=== PATIENT | male | born 1955 | race Two or more races ===

== ENCOUNTER 2017-03-14 17:53 | Emergency (ER) | payer OTHER ==
[2017-03-14 18:07] VITALS: BP 188/93; PULSE 96; RESP 16; TEMP 98.8; O2SAT 97
--- NOTE | 2017-03-14 18:21 | EDPHY ---
H & P Time Seen by Provider: 03/14/17 17:57 HPI/ROS: HPI Runny nose, spit up blood. 61-year-old male by private vehicle with his daughter and . He is . [place]-speaking only. His daughter speaks [place] well and translated. Patient reports that he has had a runny nose which she states is consistent of a clear rhinorrhea for the last 24-48 hours. He reports that he felt discharge in the back of his throat and nose, cleared at, suspected out in it had blood mixed with a clear saliva like liquid. He denies any significant sore throat. He has not had a cough. He is not on any anticoagulation. Past medical history consists of hypertension. ROS: Constitutional: No fever, no chills. No weakness. Eyes: No discharge. No changes in vision. ENT: No sore throat. Other above. Respiratory: No cough. No shortness of breath. Cardiac: No chest pain, no palpitations. Gastrointestinal: No abdominal pain, no vomiting, no diarrhea. Genitourinary: No hematuria. No dysuria or increased frequency with urination. Musculoskeletal: No back pain. No neck pain. No myalgias or arthralgias. Skin: No rashes. Neurological: No headache. No focal weakness or altered sensation. Past medical history: Hypertension. Primary care is through [facility]. Social history: Nonsmoker. Drinks several beers a night. Here with his and daughter. Physical Exam: General Appearance: Alert, no distress. This patient is responding to questions appropriately and in full sentences. This patient appears well- hydrated and well-nourished. Eyes: Pupils equal and round no pallor or injection. No lid edema, erythema or injection. ENT, Mouth: Mucous membranes are moist. The pharyngeal tissues are unremarkable. No edema or swelling. No asymmetry suggestive of abscess. No erythema or exudates. No blood in the posterior pharynx. Nasal cavity exam by speculum. There is some inflammation involving his turbinates. No evidence of mass. No evidence of active hemorrhage. External auditory canals are clear bilaterally. Tympanic membranes are clear bilaterally. Respiratory: There are no retractions, lungs are clear to auscultation with good air movement bilaterally. Cardiovascular: Regular rate and rhythm. No murmur. Neurological: Motor sensory function is grossly intact. Cranial nerves are normal. Gait is normal. Skin: Warm and dry, no rashes. Musculoskeletal: Neck is supple and nontender. No significant cervical , submandibular, submental lymphadenopathy. Extremities are symmetrical. All joints range without pain or impingement. Psychiatric: No agitation. No depression. Database: EKG: Imaging: Chest x-ray PA and lateral; the cardiac mediastinal silhouette is unremarkable. No evidence of infiltrate or pneumothorax. No acute cardiopulmonary disease process noted. Interpreted by me. Procedures: Emergency department course: Vital signs reviewed. Patient is hypertensive. Afebrile. Temperature 37.1degrees orally. 6:35 p.m., results of chest x-ray and blood work discussed with him and family. These results were reassuring. At this time I feel that he has some localized inflammation from a viral upper respiratory infection/sinusitis that is causing some bleeding in his posterior pharynx and or the mucosa of his nasal cavities. He appears well. I do not feel at this time antibiotics are indicated. I will have him follow up with his primary care physician on Thursday for re-evaluation. I also provided him with an ENT referral for further evaluation. Return to emergency department precautions were discussed with him and his family in detail. All of their questions were answered. He was discharged in good condition. Differential Diagnosis: The differential diagnosis on this patient includes but is not limited to upper respiratory infection, viral sinusitis. Leukemia, coagulopathy, uremia, anterior versus posterior epistaxis, nasal trauma, serious bacterial infection unlikely. This represents a partial list of diagnoses considered. These considerations are based on history, physical exam, past history, reassessment and diagnostic testing. Smoking Status: Never smoked Constitutional: Initial Vital Signs Temperature (C) 37.1 C 03/14/17 18:02 Heart Rate 96 03/14/17 18:02 Respiratory Rate 16 03/14/17 18:02 Blood Pressure 188/93 H 03/14/17 18:02 O2 Sat (%) 97 03/14/17 18:02 O2 Delivery Mode Room Air Allergies/Adverse Reactions: No Known Allergies Allergy (Unverified 03/14/17 18:01) Home Medications: Medication Instructions Recorded Blood Pressure Med 03/14/17 Medical Decision Making - Diagnostics Imaging Results: Imaging Impressions Chest X-Ray 03/14/17 18:12 Impression: No acute findings in the chest. - Data Points Laboratory Results: Laboratory Results 03/14/17 18:20 03/14/17 18:20 03/14/17 03/14/17 18:20 18:20 WBC 7.61 10^3/uL 10^3/uL (3.80-9.50) RBC 5.31 10^6/uL 10^6/uL (4.40-6.38) Hgb 16.9 g/dL g/dL (13.7-17.5) Hct 48.7 % % (40.0-51.0) MCV 91.7 fL fL (81.5-99.8) MCH 31.8 pg pg (27.9-34.1) MCHC 34.7 g/dL g/dL (32.4-36.7) RDW 12.3 % % (11.5-15.2) Plt Count 181 10^3/uL 10^3/uL (150-400) MPV 10.8 fL fL (8.7-11.7) Neut % (Auto) 68.4 % % (39.3-74.2) Lymph % (Auto) 23.8 % % (15.0-45.0) [place] % (Auto) 5.9 % % (4.5-13.0) Eos % (Auto) 1.1 % % (0.6-7.6) Baso % (Auto) 0.3 % % (0.3-1.7) Nucleat RBC Rel Count 0.0 % % (0.0-0.2) Absolute Neuts (auto) 5.21 10^3/uL 10^3/uL (1.70-6.50) Absolute Lymphs (auto) 1.81 10^3/uL 10^3/uL (1.00-3.00) Absolute Monos (auto) 0.45 10^3/uL 10^3/uL (0.30-0.80) Absolute Eos (auto) 0.08 10^3/uL 10^3/uL (0.03-0.40) Absolute Basos (auto) 0.02 10^3/uL 10^3/uL (0.02-0.10) Absolute Nucleated RBC 0.00 10^3/uL 10^3/uL (0-0.01) Immature Gran % 0.5 % % (0.0-1.1) Immature Gran # 0.04 10^3/uL 10^3/uL (0.00-0.10) Sodium 141 mEq/L mEq/L (134-144) Potassium 3.9 mEq/L mEq/L (3.5-5.2) Chloride 104 mEq/L mEq/L (97-110) Carbon Dioxide 22 mEq/l mEq/l (22-31) Anion Gap 15 mEq/L mEq/L (8-16) BUN 16 mg/dL mg/dL (7-23) Creatinine 0.9 mg/dL mg/dL (0.7-1.3) Estimated GFR > 60 Glucose 111 mg/dL H mg/dL (70-100) Calcium 9.1 mg/dL mg/dL (8.5-10.4) Departure - Departure Disposition: Home, Routine, Self-Care Clinical Impression: Upper respiratory infection Condition: Good Instructions: Upper Respiratory Infection (ED) Additional Instructions: Read and follow provided instructions. Follow-up with your primary care physician at [facility] on Thursday for re- evaluation. I have also provided you a referral to an ENT specialist who can further evaluate the deep aspects of your nose and throat. Return to the emergency department for worsening symptoms, high fever, coughing up blood, worsening bleeding from your throat or nose or other serious concerns. Referrals: DON PETERSEN,. [Primary Care Provider] - As per Instructions Conchis Sharp MD [Medical Doctor] - As per Instructions
[2017-03-14 18:28] LABS: % IMMATURE GRANULYOCYTES 0.5 % (0.0-1.1); ABSOLUTE IMMATURE GRANULOCYTES 0.04 10^3/uL (0.00-0.10); ADD DIFF? NO; ADD MORPH? NO; ADD SCAN? NO; ATYPICAL LYMPHOCYTE FLAG 0 (0-99); FRAGMENT RBC FLAG 0 (0-99); HEMATOCRIT 48.7 % (40.0-51.0); HEMOGLOBIN 16.9 g/dL (13.7-17.5); LEFT SHIFT FLG 0 (0-99); LIPEMIA HEMOLYSIS FLAG 90 (0-99); MEAN CELL HEMOGLOBIN 31.8 pg (27.9-34.1); MEAN CELL HEMOGLOBIN CONCENTR. 34.7 g/dL (32.4-36.7); MEAN CELL VOLUME 91.7 fL (81.5-99.8); MEAN PLATELET VOLUME 10.8 fL (8.7-11.7); PLATELET CLUMPS FLAG 10 (0-99); PLATELET COUNT 181 10^3/uL (150-400); RED BLOOD CELL COUNT 5.31 10^6/uL (4.40-6.38); RED CELL DISTRIBUTION WIDTH 12.3 % (11.5-15.2)
[2017-03-14 18:45] LABS: ANION GAP 15 mEq/L (8-16); CALCIUM 9.1 mg/dL (8.5-10.4); CARBON DIOXIDE 22 mEq/l (22-31); CHLORIDE 104 mEq/L (97-110); CREATININE 0.9 mg/dL (0.7-1.3); GLOMERULAR FILTRATION RATE > 60; GLUCOSE 111 mg/dL (70-100); POTASSIUM 3.9 mEq/L (3.5-5.2); SODIUM 141 mEq/L (134-144)
== END 2017-03-14 19:06 | disposition home or self-care (01) ==
LOC: CED 17:53
DX: J06.9 Acute upper respiratory infection, unspecified (principal); I10 Essential (primary) hypertension
CPT/HCPCS: 71020-PO; 80048-PO; 85025-PO

== ENCOUNTER → 2017-05-12 | Outpatient (CLI) | payer OTHER | LOC: BRMIMAGING 13:13 | PROVIDERS: ATTEND Internal Medicine | DX: M47.26 Other spondylosis with radiculopathy, lumbar region (principal); M46.96 Unspecified inflammatory spondylopathy, lumbar region | CPT/HCPCS: 72100-PO ==